=== PATIENT | male | born 1945 | race Caucasian/White ===

== ENCOUNTER → 2016-10-09 | Outpatient (REF) ==
[~2016-10-09] MED LIST: HCTZ 25MG TAB25 MG PO; PROSCAR 5MG5 MG PO; ZESTRIL30 MG PO; ZOCOR 20MG20 MG PO; ZYLOPRIM 100MG100 MG PO
== END ==
LOC: ZLAB.WCH 14:49
DX: Z01.89 Encounter for other specified special examinations (principal)
CPT/HCPCS: G0103

== ENCOUNTER → 2017-01-20 | Outpatient (REF) | LOC: ZLAB.WCH 10:32 | DX: Z01.89 Encounter for other specified special examinations (principal) | CPT/HCPCS: G0103 ==

== ENCOUNTER → 2017-07-23 | Outpatient (REF) | LOC: ZLAB.WCH 18:10 | DX: Z01.89 Encounter for other specified special examinations (principal) ==

== ENCOUNTER → 2017-12-15 | Outpatient (REF) | LOC: ZLAB.WCH 15:42 | DX: Z01.89 Encounter for other specified special examinations (principal) | CPT/HCPCS: G0103 ==

== ENCOUNTER → 2018-03-16 | Outpatient (REF) | LOC: ZLAB.WCH 16:21 | DX: Z01.89 Encounter for other specified special examinations (principal) | CPT/HCPCS: G0103 ==

== ENCOUNTER → 2018-09-14 | Outpatient (REF) | LOC: ZLAB.WCH 16:09 | DX: Z01.89 Encounter for other specified special examinations (principal) | CPT/HCPCS: G0103 ==